=== PATIENT | male | born 1960 | race African-American/Black ===

== ENCOUNTER 2016-06-30 11:16 | Emergency (ER) | payer OTHER ==
[2016-06-30 11:32] VITALS: BP 162/106
--- NOTE | 2016-06-30 11:57 | ER Document Report ---
HPI - HPI Pain Level: 4 Context: 56 yo male c/o sore throat x several years. pt has been seen by his PCM and ENT for same. Most recently seen by ENT, pt reports negative scope. was scheduled for CT, but missed appointment. no new symptoms, just consistant left sided throat pain. no fever, no difficulty swallowing or talking. pt is a smoker Associated Symptoms: Allergy/hay fever. denies: Body/muscle aches, Chest pain, Chills, Nonproductive cough, Fever Exacerbated by: Food Relieved by: Denies Similar symptoms previously: Yes Recently seen / treated by doctor: Yes - PCM, ENT - ROS Systems Reviewed and Negative: Yes All other systems reviewed and negative - DERM Skin Color: Normal Past Medical History - General Information source: Patient - Social History Smoking Status: Current Every Day Smoker Frequency of alcohol use: Rare Drug Abuse: None Lives with: Alone Family History: Reviewed & Not Pertinent, CVA Patient has suicidal ideation: No Patient has homicidal ideation: No Pulmonary Medical History: Reports: Hx Bronchitis Denies: Hx Tuberculosis Renal/ Medical History: Denies: Hx Peritoneal Dialysis Psychiatric Medical History: Reports: Hx Depression Past Surgical History: Reports: Hx Inguinal Hernia, Hx Orthopedic Surgery - mass removed right hip - Immunizations Immunizations up to date: No Hx Diphtheria, Pertussis, Tetanus Vaccination: No Vertical Provider Document - CONSTITUTIONAL Agree With Documented VS: Yes Exam Limitations: No Limitations General Appearance: WD/WN, No Apparent Distress - INFECTION CONTROL TRAVEL OUTSIDE OF THE [place] IN LAST 30 DAYS: No - HEENT HEENT: Atraumatic, Normal ENT Exam, PERRLA - NECK Neck: Normal Inspection, Supple. negative: Lymphadenopathy-Left, Lymphadenopathy-Right - RESPIRATORY Respiratory: Breath Sounds Normal, No Respiratory Distress O2 Sat by Pulse Oximetry: 97 - CARDIOVASCULAR Cardiovascular: Regular Rate, Regular Rhythm - NEURO Level of Consciousness: Awake, Alert, Appropriate - DERM Integumentary: Warm, Dry Course - Re-evaluation Re-evalutation: 06/30/16 12:06 nonemergent, no CT indicated today but do recommend follow up with PCM for further evaluation. will prescribe antihistamine and intranasal steroid to help alleviate allergy symptoms. pt highly encouraged to quit smoking. BP noted to be elevated. pt denies hx/o HTN. pt admits to high sodium intake. recommend pt keep blood pressure diary, limit sodium to less than 1500mg/day. follow up with PCM for further management pt is asymptomatic for any hypertensive crisis. denies PACK, dizziness, neurologic deficits. pt is agreeable with plan and stable for discharge - Vital Signs Vital signs: Temp Pulse Resp BP Pulse Ox 97.7 F 73 16 162/106 H 97 06/30/16 11:30 06/30/16 11:30 06/30/16 11:30 06/30/16 11:30 06/30/16 11:30 Discharge - Discharge Clinical Impression: Throat pain, Elevated blood pressure reading Condition: Stable Disposition: HOME, SELF-CARE Instructions: Sore Throat ([facility]), High Blood Pressure ([facility]), Stop Smoking ([facility]) Additional Instructions: Your blood pressure was elevated today, reading 162/106 Please keep a blood pressure diary. If your readings are consistantly greater than 140/90, you will need treatment Limit your sodium intake to less than 1500mg/day Follow up with your primary care PALLAVI for further evaluation and treatment Your chronic sore throat needs further evaluation Please see your primary care PALLAVI I am starting you on intranasal steroid and antihistamine to help with allergy symptoms Prescriptions: Fexofenadine HCl [Cathy] 180 mg PO DAILY #10 tablet Fluticasone Propionate [Flonase Allergy Relief] 2 spray NS DAILY #1 bottle
== END 2016-06-30 12:41 | disposition home or self-care (01) ==
LOC: ER 11:16
DX: J02.9 Acute pharyngitis, unspecified (principal); J30.1 Allergic rhinitis due to pollen; F17.200 Nicotine dependence, unspecified, uncomplicated; R03.0 Elevated blood-pressure reading, without diagnosis of hypertension
CPT/HCPCS: 99282

== ENCOUNTER 2016-10-11 09:21 | Emergency (ER) | payer OTHER ==
[2016-10-11] MEDS ORDERED: ASPIRIN 81 MG TABLET, CHEWABLE PO ONE (09:46)
--- NOTE | 2016-10-11 09:50 | ER Document Report ---
ED Medical Screen (RME) - General TRAVEL OUTSIDE OF THE [place] IN LAST 30 DAYS: No <RORO JACKSON - Last Filed: 10/11/16 12:25> <GILBERT SIERRA - Last Filed: 10/11/16 21:12> - General Chief Complaint: Weakness Stated Complaint: WEAKNESS/DIZZINESS Time Seen by Provider: 10/11/16 09:40 Notes: Patient is a 56 year old male presenting to the ED for chest pain and faintness. Patient has a soreness/heaviness in his chest that was onset yesterday. Patient also feels faint, sick, woozy, and dizzy. Patient states he feels like he is going to fall over when he walks. Patient states his symptoms have progressed and has been feeling worse as the day when on. Patient took his blood pressure at home which was 138/87. Patient denies any shortness of breath. Patient was taken off opiates with chronic pain management over 1 year ago. Patient has been working outside in the heat over the past few weeks. Patient has been to this facility before for similar symptoms but stated that he monitored his blood pressure and then he was feeling better so he stopped. Patient is an everyday smoker. I have greeted and performed a rapid initial assessment of this patient. A comprehensive ED assessment and evaluation of the patient, analysis of test results and completion of the medical decision making process will be conducted by additional ED providers. (RORO JACKSON) - Related Data Allergies/Adverse Reactions: No Known Allergies Allergy (Verified 10/11/16 09:28) Past Medical History - Social History Cigarette use (# per day): Yes Chew tobacco use (# tins/day): No Frequency of alcohol use: None Drug Abuse: None Family history: None Pulmonary Medical History: Reports: Hx Bronchitis Denies: Hx Tuberculosis Renal/ Medical History: Denies: Hx Peritoneal Dialysis Psychiatric Medical History: Reports: Hx Depression Past Surgical History: Reports: Hx Inguinal Hernia, Hx Orthopedic Surgery - mass removed right hip - Immunizations Immunizations up to date: No Hx Diphtheria, Pertussis, Tetanus Vaccination: No <RORO JACKSON - Last Filed: 10/11/16 12:25> Physical Exam <RORO JACKSON - Last Filed: 10/11/16 12:25> <GILBERT SIERRA - Last Filed: 10/11/16 21:12> - Vital signs Vitals: Temp Pulse Resp BP Pulse Ox 97.9 F 69 16 150/92 H 100 10/11/16 09:29 10/11/16 09:29 10/11/16 09:29 10/11/16 09:29 10/11/16 09:29 - Notes Notes: GENERAL: Alert, interacts well. No acute distress. LUNGS: Clear to auscultation bilaterally, no wheezes, rales, or rhonchi. No respiratory distress. HEART: Regular rate and rhythm. No murmurs, gallops, or rubs. (RORO JACKSON) Course - Laboratory Result Diagrams: 10/11/16 10:10 10/11/16 10:10 <RORO JACKSON - Last Filed: 10/11/16 12:25> - Laboratory Result Diagrams: 10/11/16 10:10 10/11/16 10:10 <GILBERT SIERRA - Last Filed: 10/11/16 21:12> - Vital Signs Vital signs: Temp Pulse Resp BP Pulse Ox 98.2 F 55 L 19 167/99 H 100 10/11/16 14:39 10/11/16 11:10 10/11/16 14:25 10/11/16 14:25 10/11/16 14:25 - Laboratory Laboratory results interpreted by me: 10/11/16 10/11/16 10:10 10:10 RDW 15.1 H Monocytes % 16.0 H Creatine Kinase 208 H Doctor's Discharge <RORO JACKSON - Last Filed: 10/11/16 12:25> <GILBERT SIERRA - Last Filed: 10/11/16 21:12> - Discharge Clinical Impression: Body aches HTN (hypertension) Qualifiers: Hypertension type: essential hypertension Qualified Code(s): I10 - Essential ( primary) hypertension Condition: Stable Disposition: HOME, SELF-CARE Additional Instructions: Chest Pain of Unclear Cause The exact cause of your chest pain isn't clear. Fortunately, there is no evidence of a dangerous medical condition. Further testing may be required to find the source of the pain. Most often, we find that this pain is coming from the chest wall -- the muscles or rib joints in the chest. But chest pain can come from the lung and lung lining, the esophagus, the heart valves or heart lining, and even the stomach or gallbladder. Rest. Eat lightly until the pain is gone. We may prescribe medicine for pain and inflammation. You should call the physician immediately if the pain radiates to the shoulder, jaw or arms; if you start to run a fever or develop a cough; or if you develop shortness of breath, or other new or alarming symptoms. Follow up with your physician tomorrow for further care or return to the ED IMMEDIATELY if symptoms worsen or new concerns occur. If you cannot afford to follow up with your primary care physician a list of low cost clinics have been provided at the end of your discharge papers as well. Scribe Documentation - Scribe Written by Ariana:: Ariana Sosa, 10/11/16 9:50 acting as scribe for :: Tae <RORO JACKSON - Last Filed: 10/11/16 12:25>
[2016-10-11 10:23] LABS: ABSOLUTE BASOPHILS # (AUTO) 0.1 10^3/uL (0.0-0.2); ABSOLUTE EOSINOPHILS # (AUTO) 0.3 10^3/uL (0.0-0.6); ABSOLUTE LYMPHOCYTES (AUTO) 1.6 10^3/uL (0.5-4.7); ABSOLUTE MONOCYTES (AUTO) 0.9 10^3/uL (0.1-1.4); ABSOLUTE NEUT (AUTO) 2.6 10^3/uL (1.7-8.2); BASOPHILS % (AUTO) 1.3 % (0-2); EOSINOPHILS % (AUTO) 4.9 % (0-6); HEMATOCRIT 43.6 % (37.9-51.0); HEMOGLOBIN 14.6 g/dL (13.5-17.0); HGB HCT DIFFERENCE 0.2; LYMPHOCYTES % (AUTO) 29.1 % (13-45); MEAN CORPUSCULAR HEMOGLOBIN 28.8 pg (27.0-33.4); MEAN CORPUSCULAR HGB CONC 33.5 g/dL (32.0-36.0); MEAN CORPUSCULAR VOLUME 86 fl (80-97); RED BLOOD COUNT 5.06 10^6/uL (4.35-5.55); RED CELL DISTRIBUTION WIDTH 15.1 % (11.5-14.0); SEGMENTED NEUTROPHILS % (AUTO) 48.7 % (42-78); WHITE BLOOD COUNT 5.4 10^3/uL (4.0-10.5)
--- NOTE | 2016-10-11 10:29 | RADIOLOGY REPORT (SQ) ---
EXAM DESCRIPTION: CHEST SINGLE VIEW COMPLETED DATE/TIME: 10/11/2016 10:21 am REASON FOR STUDY: chest tightness COMPARISON: February 2013 EXAM PARAMETERS: NUMBER OF VIEWS: One view. TECHNIQUE: Single frontal radiographic view of the chest acquired. RADIATION DOSE: NA LIMITATIONS: None. FINDINGS: LUNGS AND PLEURA: No opacities, masses or pneumothorax. No pleural effusion. MEDIASTINUM AND HILAR STRUCTURES: No masses. Contour normal. HEART AND VASCULAR STRUCTURES: Heart normal in size. Normal vasculature. BONES: No acute findings. HARDWARE: None in the chest. OTHER: No other significant finding. IMPRESSION: NO ACUTE RADIOGRAPHIC FINDING IN THE CHEST. TECHNICAL DOCUMENTATION: JOB ID: [id number]
[2016-10-11 10:53] LABS: ALANINE AMINOTRANSFERASE 34 U/L (21-72); ALBUMIN 4.3 g/dL (3.5-5.0); ALKALINE PHOSPHATASE 54 U/L (38-126); ANION GAP 7 (5-19); ASPARTATE AMINO TRANSFERASE 36 U/L (17-59); BILIRUBIN,DIRECT 0.2 mg/dL (0.0-0.4); BLOOD UREA NITROGEN 11 mg/dL (7-20); CALCIUM 9.2 mg/dL (8.4-10.2); CARBON DIOXIDE 28 mmol/L (22-30); CHLORIDE 104 mmol/L (98-107); CREATINE KINASE 208 U/L (55-170); CREATININE RESULT 1.05 mg/dL (0.52-1.25); GLUCOSE 95 mg/dL (75-110); SODIUM 138.8 mmol/L (137-145); TOTAL PROTEIN 7.6 g/dL (6.3-8.2)
[2016-10-11 11:11] LABS: CREATINE KINASE MB 1.13 ng/mL (<4.55)
[2016-10-11] MEDS ORDERED: NORMAL SALINE 1000 ML 1,000 ML IV PRN (11:13)
[2016-10-11 11:19] LABS: TROPONIN I < 0.012 ng/mL
--- NOTE | 2016-10-11 11:48 | ER Document Report ---
ED General - General Chief Complaint: Weakness Stated Complaint: WEAKNESS/DIZZINESS Time Seen by Provider: 10/11/16 09:40 Mode of Arrival: Ambulatory Information source: Patient Notes: 56-year-old male presents with complaints of generalized weakness dizziness for approximately 1 week. 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 Patient notes his whole body aches, denies any specific chest pain . notes the achiness all throughout has been constant, that he has had cramps in his legs TRAVEL OUTSIDE OF THE [place] IN LAST 30 DAYS: No - HPI Onset: Last week Onset/Duration: Persistent Quality of pain: Achy, Cramping Severity: Mild Pain Level: 1 Associated symptoms: Body/muscle aches Exacerbated by: Denies Relieved by: Denies Similar symptoms previously: No Recently seen / treated by doctor: No - Related Data Allergies/Adverse Reactions: No Known Allergies Allergy (Verified 10/11/16 09:28) Past Medical History - Social History Smoking Status: Current Every Day Smoker Cigarette use (# per day): Yes Chew tobacco use (# tins/day): No Smoking Education Provided: No Frequency of alcohol use: None Drug Abuse: None Family History: Reviewed & Not Pertinent, CVA - Past Medical History Cardiac Medical History: Reports: Hx Hypertension - no medicatoins was told to monitor Pulmonary Medical History: Reports: Hx Bronchitis Denies: Hx Tuberculosis Renal/ Medical History: Denies: Hx Peritoneal Dialysis Psychiatric Medical History: Reports: Hx Depression Past Surgical History: Reports: Hx Inguinal Hernia, Hx Orthopedic Surgery - mass removed right hip - Immunizations Immunizations up to date: No Hx Diphtheria, Pertussis, Tetanus Vaccination: No Review of Systems - Review of Systems Notes: REVIEW OF SYSTEMS: CONSTITUTIONAL : Denies fever, chills, or sweats. Denies recent illness. EENT: Denies eye, ear, throat, or mouth pain or symptoms. Denies nasal or sinus congestion or discharge. Denies throat, tongue, or mouth swelling or difficulty swallowing. CARDIOVASCULAR: Denies chest pain. Denies palpitations or racing or irregular heart beat. Denies ankle edema. RESPIRATORY: Denies cough, cold, or chest congestion. Denies shortness of breath, difficulty breathing, or wheezing. GASTROINTESTINAL: Denies abdominal pain or distention. Denies nausea, vomiting , or diarrhea. Denies blood in vomitus, stools, or per rectum. Denies black, tarry stools. Denies constipation. GENITOURINARY: Denies difficulty urinating, painful urination, burning, frequency, blood in urine, or discharge. MUSCULOSKELETAL: Body aches SKIN: Denies rash, lesions or sores. HEMATOLOGIC : Denies easy bruising or bleeding. LYMPHATIC: Denies swollen, enlarged glands. NEUROLOGICAL: Denies confusion or altered mental status. Denies passing out or loss of consciousness. Denies dizziness or lightheadedness. Denies headache. Denies weakness or paralysis or loss of use of either side. Denies problems with gait or speech. Denies sensory loss, numbness, or tingling. Denies seizures. PSYCHIATRIC: Denies anxiety or stress. Denies depression, suicidal ideation, or homicidal ideation. ALL OTHER SYSTEMS REVIEWED AND NEGATIVE. Dictation was performed using [employer] voice recognition software PHYSICAL EXAMINATION: GENERAL: Well-appearing, well-nourished and in no acute distress. HEAD: Atraumatic, normocephalic. EYES: Pupils equal round and reactive to light, extraocular movements intact, sclera anicteric, conjunctiva are normal. ENT: Nares patent, oropharynx clear without exudates. Moist mucous membranes. NECK: Normal range of motion, supple without lymphadenopathy LUNGS: Breath sounds clear to auscultation bilaterally and equal. No wheezes rales or rhonchi. HEART: Regular rate and rhythm without murmurs ABDOMEN: Soft, nontender, nondistended abdomen. No guarding, no rebound. No masses appreciated. Musculoskeletal: Normal range of motion, no pitting or edema. No cyanosis. NEUROLOGICAL: Cranial nerves grossly intact. Normal speech, normal gait. Normal sensory, motor exams PSYCH: Normal mood, normal affect. SKIN: Warm, Dry, normal turgor, no rashes or lesions noted. Physical Exam - Vital signs Vitals: Temp Pulse Resp BP Pulse Ox 97.9 F 69 16 150/92 H 100 10/11/16 09:29 10/11/16 09:29 10/11/16 09:29 10/11/16 09:29 10/11/16 09:29 Course - Re-evaluation Re-evalutation: 10/11/16 11:47 Patient appears to be having muscle breakdown secondary to exertion and the heat , he will be given IV fluids, cardiac enzymes were negative CK is consistent with the breakdown the muscle. Otherwise he looks well is in no distress EKG noted no acute abnormality given the patient's symptoms have been ongoing for over 1 week I would expect lab value to note cardiac involvement which it does not at this time After performing a Medical Screening Examination, I estimate there is LOW risk for RUPTURED ESOPHAGUS, PNEUMOTHORAX, PULMONARY EMBOLISM, ACUTE CORONARY SYNDROME, OR THORACIC AORTIC DISSECTION, thus I consider the discharge disposition reasonable. I have reevaluated this patient multiple times and no significant life threatening changes are noted. The patient and I have discussed the diagnosis and risks, and we agree with discharging home with close follow-up. We also discussed returning to the Emergency Department immediately if new or worsening symptoms occur. We have discussed the symptoms which are most concerning (e.g., bloody sputum, worsening pain or shortness of breath) that necessitate immediate return. - Vital Signs Vital signs: Temp Pulse Resp BP Pulse Ox 97.9 F 69 16 150/92 H 100 10/11/16 09:29 10/11/16 09:29 10/11/16 09:29 10/11/16 09:29 10/11/16 09:29 - Laboratory Result Diagrams: 10/11/16 10:10 10/11/16 10:10 Laboratory results interpreted by me: 10/11/16 10/11/16 10:10 10:10 RDW 15.1 H Monocytes % 16.0 H Creatine Kinase 208 H - Diagnostic Test Radiology reviewed: Image reviewed, Reports reviewed - EKG Interpretation by Me EKG shows normal: Sinus rhythm, Dix, Intervals, QRS Complexes Discharge - Discharge Clinical Impression: Body aches HTN (hypertension) Qualifiers: Hypertension type: essential hypertension Qualified Code(s): I10 - Essential ( primary) hypertension Condition: Stable Disposition: HOME, SELF-CARE Additional Instructions: Chest Pain of Unclear Cause The exact cause of your chest pain isn't clear. Fortunately, there is no evidence of a dangerous medical condition. Further testing may be required to find the source of the pain. Most often, we find that this pain is coming from the chest wall -- the muscles or rib joints in the chest. But chest pain can come from the lung and lung lining, the esophagus, the heart valves or heart lining, and even the stomach or gallbladder. Rest. Eat lightly until the pain is gone. We may prescribe medicine for pain and inflammation. You should call the physician immediately if the pain radiates to the shoulder, jaw or arms; if you start to run a fever or develop a cough; or if you develop shortness of breath, or other new or alarming symptoms. Follow up with your physician tomorrow for further care or return to the ED IMMEDIATELY if symptoms worsen or new concerns occur. If you cannot afford to follow up with your primary care physician a list of low cost clinics have been provided at the end of your discharge papers as well.
[2016-10-11 14:31] VITALS: BP 167/99
--- NOTE | 2016-10-13 13:42 | EKG REPORT ---
SEVERITY:- BORDERLINE ECG - SINUS RHYTHM RIGHT AXIS DEVIATION LOW VOLTAGE IN FRONTAL LEADS BORDERLINE T WAVE ABNORMALITIES : Confirmed by: Keisha Syed MD 13-Oct-2016 13:41:52
== END 2016-10-11 14:40 | disposition home or self-care (01) ==
LOC: ER 09:21
DX: M79.1 Myalgia (principal); I10 Essential (primary) hypertension; R53.1 Weakness; R42 Dizziness and giddiness; F17.210 Nicotine dependence, cigarettes, uncomplicated
CPT/HCPCS: 93005; 99285; 96360; 96361; 36415; 82553; 82550; 85025; 80053; 84484; 71010; 93010; J7030

== ENCOUNTER 2017-05-17 15:38 | Emergency (ER) | payer OTHER ==
[2017-05-17] MEDS ORDERED: ACETAMINOPHEN 325 MG TABLET PO ONE (15:44)
[2017-05-17 15:47] VITALS: BP 148/96
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
--- NOTE | 2017-05-17 16:13 | RADIOLOGY REPORT (SQ) ---
EXAM DESCRIPTION: CT HEAD WITHOUT COMPLETED DATE/TIME: 05/17/2017 4:04 pm REASON FOR STUDY: head injury, +LOC COMPARISON: None. TECHNIQUE: Axial images acquired through the brain without intravenous contrast. Images reviewed wi th bone, brain and subdural windows. Images stored on PACS. All CT scanners at this facility use dose modulation, iterative reconstruction, and/or weight based d osing when appropriate to reduce radiation dose to as low as reasonably achievable (ALARA). [facility]: Dose Right [facility]: CareDose [facility]: Dose Right [facility]: Teradose 4D [facility]: Smart [employer] RADIATION DOSE: CT Rad equipment meets quality standard of care and radiation dose reduction techniq ues were employed. CTDIvol: 64.6 mGy. DLP: 1034 mGy-cm. mGy. LIMITATIONS: None. FINDINGS: VENTRICLES: Normal size and contour. CEREBRUM: No masses. No hemorrhage. No midline shift. No evidence for acute infarction. Normal gra y/white matter differentiation. No areas of low density in the white matter. CEREBELLUM: No masses. No hemorrhage. No alteration of density. No evidence for acute infarction. EXTRAAXIAL SPACES: No fluid collections. No masses. ORBITS AND GLOBE: No intra- or extraconal masses. Normal contour of globe without masses. CALVARIUM: No fracture. PARANASAL SINUSES: Mild diffuse mucous membrane thickening in the maxillary sinuses and ethmoid air c ell SOFT TISSUES: No mass or hematoma. OTHER: No other significant finding. IMPRESSION: NORMAL BRAIN CT WITHOUT CONTRAST. EVIDENCE OF ACUTE STROKE: NO. COMMENT: Quality ID # [id number]: Final reports with documentation of one or more dose reduction techniques (e.g., Automated exposure control, adjustment of the mA and/or kV according to patient size, use of iterative reconstruction technique) TECHNICAL DOCUMENTATION: JOB ID: [id number] [employer]- All Rights Reserved Reading location - IP/workstation name: [email or web address]
== END 2017-05-17 16:33 | disposition home or self-care (01) ==
LOC: ER 15:38
DX: S00.03XA Contusion of scalp, initial encounter (principal); Y04.2XXA Assault by strike against or bumped into by another person, initial encounter; Y93.01 Activity, walking, marching and hiking; R32 Unspecified urinary incontinence; F10.20 Alcohol dependence, uncomplicated; I10 Essential (primary) hypertension; F17.200 Nicotine dependence, unspecified, uncomplicated
CPT/HCPCS: 70450; 99284

== ENCOUNTER 2017-05-17 20:07 | Emergency (ER) | payer OTHER ==
[2017-05-17] MEDS ORDERED: DIPH/PERTUSS(ACELL)/TETANUS VAC/PF 0.5 ML SYR (>=10YO) IM ONE (20:54)
[2017-05-17] MEDS ORDERED: LIDOCAINE 1% INJ-PF (10 MG/ML) 30 ML SDV INJ ONE (20:54)
[2017-05-17] MEDS ORDERED: INFLUENZA ADLT QUAD (36MOS+) 2017-18 VAC 0.5 ML SYR IM ONE (20:56)
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
[2017-05-17] MEDS ORDERED: CEPHALEXIN 500 MG CAPSULE PO ONE (21:43)
[2017-05-17 22:12] VITALS: BP 125/109
== END 2017-05-17 22:40 | disposition home or self-care (01) ==
LOC: ER 20:07
DX: S01.511A Laceration without foreign body of lip, initial encounter (principal); Y09 Assault by unspecified means; I10 Essential (primary) hypertension; F17.200 Nicotine dependence, unspecified, uncomplicated; Z23 Encounter for immunization
CPT/HCPCS: 99282; 90471; 90715; 90686; 12011; G0008

== ENCOUNTER 2017-07-02 11:06 | Emergency (ER) | payer OTHER ==
--- NOTE | 2017-07-02 11:35 | ER Document Report ---
ED Medical Screen (RME) - General Chief Complaint: Chest Pain Stated Complaint: CHEST PAIN Time Seen by Provider: 07/02/17 11:34 Notes: cp since this am. no prev card eval except holter monitor. TRAVEL OUTSIDE OF THE [place] IN LAST 30 DAYS: No - Related Data Allergies/Adverse Reactions: No Known Allergies Allergy (Verified 07/02/17 11:07) Past Medical History - Social History Family history: None - Past Medical History Cardiac Medical History: Reports: Hx Hypertension - no medicatoins was told to monitor Pulmonary Medical History: Reports: Hx Bronchitis Denies: Hx Tuberculosis Renal/ Medical History: Denies: Hx Peritoneal Dialysis Psychiatric Medical History: Reports: Hx Depression Past Surgical History: Reports: Hx Inguinal Hernia, Hx Orthopedic Surgery - mass removed right hip - Immunizations Immunizations up to date: No Hx Diphtheria, Pertussis, Tetanus Vaccination: No Physical Exam - Vital signs Vitals: Temp Pulse Resp BP Pulse Ox 97.9 F 69 14 144/89 H 100 07/02/17 11:20 07/02/17 11:20 07/02/17 11:20 07/02/17 11:20 07/02/17 11:20 Course - Vital Signs Vital signs: Temp Pulse Resp BP Pulse Ox 97.9 F 69 14 144/89 H 100 07/02/17 11:20 07/02/17 11:20 07/02/17 11:20 07/02/17 11:20 07/02/17 11:20
[2017-07-02 12:11] LABS: ABSOLUTE EOSINOPHILS # (AUTO) 0.2 10^3/uL (0.0-0.6); ABSOLUTE LYMPHOCYTES (AUTO) 1.3 10^3/uL (0.5-4.7); ABSOLUTE MONOCYTES (AUTO) 0.8 10^3/uL (0.1-1.4); ABSOLUTE NEUT (AUTO) 2.6 10^3/uL (1.7-8.2); BASOPHILS % (AUTO) 0.9 % (0-2); EOSINOPHILS % (AUTO) 3.8 % (0-6); HEMATOCRIT 42.2 % (37.9-51.0); HEMOGLOBIN 14.3 g/dL (13.5-17.0); LYMPHOCYTES % (AUTO) 26.8 % (13-45); MEAN CORPUSCULAR HEMOGLOBIN 28.6 pg (27.0-33.4); MEAN CORPUSCULAR VOLUME 84 fl (80-97); MONOCYTES % (AUTO) 15.4 % (3-13); PLATELET COUNT 209 10^3/uL (150-450); RED BLOOD COUNT 5.01 10^6/uL (4.35-5.55); RED CELL DISTRIBUTION WIDTH 16.2 % (11.5-14.0); SEGMENTED NEUTROPHILS % (AUTO) 53.1 % (42-78); TOTAL CELLS COUNTED % (AUTO) 100 %; WHITE BLOOD COUNT 4.9 10^3/uL (4.0-10.5)
[2017-07-02 12:34] LABS: ALANINE AMINOTRANSFERASE 28 U/L (21-72); ALBUMIN 4.5 g/dL (3.5-5.0); ALKALINE PHOSPHATASE 50 U/L (38-126); ANION GAP 8 (5-19); ASPARTATE AMINO TRANSFERASE 30 U/L (17-59); BILIRUBIN,DIRECT 0.4 mg/dL (0.0-0.4); BILIRUBIN,TOTAL 0.9 mg/dL (0.2-1.3); BLOOD UREA NITROGEN 18 mg/dL (7-20); CALCIUM 9.9 mg/dL (8.4-10.2); CARBON DIOXIDE 27 mmol/L (22-30); CHLORIDE 103 mmol/L (98-107); GLUCOSE 123 mg/dL (75-110); POTASSIUM 4.6 mmol/L (3.6-5.0); SODIUM 137.9 mmol/L (137-145); TOTAL PROTEIN 7.4 g/dL (6.3-8.2)
[2017-07-02 13:18] LABS: APPEARANCE,URINE CLEAR; BILIRUBIN,URINE NEGATIVE (NEGATIVE); COLOR,URINE STRAW; GLUCOSE, URINE NEGATIVE (NEGATIVE); KETONES,URINE NEGATIVE (NEGATIVE); LEUKOCYTE ESTERASE,URINE NEGATIVE (NEGATIVE); NITRITE,URINE NEGATIVE (NEGATIVE); PROTEIN,URINE NEGATIVE (NEGATIVE); URINE SPECIFIC GRAVITY 1.004; UROBILINOGEN,URINE NEGATIVE mg/dL (<2.0)
[2017-07-02] MEDS ORDERED: LIDOCAINE 2% VISCOUS SOLN 20 ML UDCUP PO ONE (13:32)
[2017-07-02] MEDS ORDERED: MAG HYDROX/AL HYDROX/SIMETH SUSP 30 ML UDCUP PO ONE (13:32)
[2017-07-02] MEDS ORDERED: METOCLOPRAMIDE HCL ORAL SOLN 10 MG/10 ML UDCUP PO ONE (13:32)
--- NOTE | 2017-07-02 13:59 | EKG REPORT ---
SEVERITY:- ABNORMAL ECG - SINUS RHYTHM PROBABLE LEFT ATRIAL ABNORMALITY RIGHT AXIS DEVIATION BORDERLINE T WAVE ABNORMALITIES MINIMAL ST ELEVATION, ANTERIOR LEADS : Confirmed by: Arslan Godfrey MD 02-Jul-2017 13:59:12
--- NOTE | 2017-07-02 14:04 | RADIOLOGY REPORT (SQ) ---
EXAM DESCRIPTION: FACIAL BONES COMPLETED DATE/TIME: 07/02/2017 1:46 pm REASON FOR STUDY: tooth in left upper COMPARISON: CT brain 05/17/2017 NUMBER OF VIEWS: Three view. TECHNIQUE: Images of the facial bones acquired. LIMITATIONS: None. FINDINGS: ORBITS: No fracture. No foreign body. SINUSES: No mucosal thickening. No air fluid levels. FACIAL BONES: No fracture. OTHER: No other significant finding. IMPRESSION: NO FOREIGN BODY OR FRACTURE OF THE FACIAL BONES. TECHNICAL DOCUMENTATION: JOB ID: [id number] [employer]- All Rights Reserved Reading location - IP/workstation name: [email or web address]
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
[2017-07-02 15:20] VITALS: BP 138/83
== END 2017-07-02 15:41 | disposition left against medical advice (07) ==
LOC: ER 11:06
DX: R07.9 Chest pain, unspecified (principal); S01.511D Laceration without foreign body of lip, subsequent encounter; Y04.8XXD Assault by other bodily force, subsequent encounter; F17.210 Nicotine dependence, cigarettes, uncomplicated; I10 Essential (primary) hypertension
CPT/HCPCS: 93005; 99285; 36415; 85025; 80053; 81001; 84484; 70150; 93010; J3490

== ENCOUNTER 2017-12-04 02:44 | Emergency (ER) | payer OTHER ==
[2017-12-04 03:10] VITALS: BP 145/93
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
[2017-12-04] MEDS ORDERED: ACETAMINOPHEN 325 MG TABLET PO ONE (03:56)
--- NOTE | 2017-12-04 09:26 | EKG REPORT ---
SEVERITY:- BORDERLINE ECG - SINUS RHYTHM PROBABLE LEFT ATRIAL ABNORMALITY RIGHT AXIS DEVIATION : Confirmed by: Anthony Millard 04-Dec-2017 09:25:53
== END 2017-12-04 04:14 | disposition home or self-care (01) ==
LOC: ER 02:44
DX: S20.212A Contusion of left front wall of thorax, initial encounter (principal); R07.9 Chest pain, unspecified; R06.02 Shortness of breath; W19.XXXA Unspecified fall, initial encounter; Y92.009 Unspecified place in unspecified non-institutional (private) residence as the place of occurrence of the external cause; F17.200 Nicotine dependence, unspecified, uncomplicated
CPT/HCPCS: 71046; 93005; 93010; 99283

== ENCOUNTER 2019-01-23 17:59 | Emergency (ER) | payer OTHER ==
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
--- NOTE | 2019-01-23 20:23 | ER Document Report ---
HPI - HPI Time Seen by Provider: 01/23/19 18:20 Pain Level: 4 Context: Patient is a 58-year-old male who presents to the emergency department with a chief complaint of sore throat. Patient reports this is a chronic sore throat that he has had a for over 5 years. Patient reports at times his throat appears more irritated. Patient reports he has had more irritation over the past 2 weeks. Patient denies any other symptoms to include fever, dental pain, facial swelling, difficulty breathing or swallowing, neck pain, nausea, vomiting or diarrhea. Patient reports he has been seen by the ENT for similar symptoms and had a scope done. Patient reports this was negative. Patient states he has been given medications here in the past in our emergency department that have help with his pain. Patient reports he believes it was a pain medication and an antibiotic. Past Medical History - General Information source: Patient - Social History Smoking Status: Current Every Day Smoker Frequency of alcohol use: Social Drug Abuse: None Lives with: Family Family History: Reviewed & Not Pertinent, CVA Patient has suicidal ideation: No Patient has homicidal ideation: No - Past Medical History Cardiac Medical History: Reports: Hx Hypertension - no medicatoins was told to monitor Pulmonary Medical History: Reports: Hx Bronchitis Denies: Hx Tuberculosis EENT Medical History: Reports: None Neurological Medical History: Reports: None Endocrine Medical History: Reports: None Renal/ Medical History: Reports: None. Denies: Hx Peritoneal Dialysis Malignancy Medical History: Reports None GI Medical History: Reports: Hx Hiatal Hernia Musculoskeletal Medical History: Reports None Skin Medical History: Reports None Psychiatric Medical History: Reports: Hx Depression Traumatic Medical History: Reports: None Infectious Medical History: Reports: None Past Surgical History: Reports: Hx Inguinal Hernia, Hx Orthopedic Surgery - mass removed right hip - Immunizations Immunizations up to date: No Hx Diphtheria, Pertussis, Tetanus Vaccination: No Vertical Provider Document - CONSTITUTIONAL Agree With Documented VS: Yes Exam Limitations: No Limitations General Appearance: No Apparent Distress - INFECTION CONTROL TRAVEL OUTSIDE OF THE [place] IN LAST 30 DAYS: No - HEENT HEENT: Atraumatic, Normal ENT Exam, Normocephalic, PERRLA Notes: TMs were unremarkable bilaterally. There was no external pinna tenderness, ear drainage, tragus tenderness, mastoid tenderness, or erythema noted. Patient does not have any cervical lymphadenopathy. Patient's airway is patent. There is no oropharynx erythema. No tonsillar hypertrophy. Uvula is midline. Patient does have poor dentition with multiple broken teeth. There is no obvious signs of infection and no tenderness to the gums. There is no palpable mass or abscess within the mouth. - NECK Neck: Normal Inspection, Supple - RESPIRATORY Respiratory: Breath Sounds Normal, No Respiratory Distress - CARDIOVASCULAR Cardiovascular: Regular Rate, Regular Rhythm - GI/ABDOMEN Gastrointestinal: Abdomen Soft, Abdomen Non-Tender, Normal Bowel Sounds - MUSCULOSKELETAL/EXTREMETIES Musculoskeletal/Extremeties: FROM - NEURO Level of Consciousness: Awake, Alert, Appropriate - DERM Integumentary: Warm, Dry, No Rash Course - Re-evaluation Re-evalutation: 01/23/19 20:32 During the patient evaluation he is asking for pain medication. Patient reports he has been giving this before in the past which did seem to help with his symptoms. Patient reports his chronic sore throat on the left side has been present since 2013. Patient states he did have a CAT scan ordered years ago by the [facility] but he missed this appointment and did not reschedule this. Patient reports at times his sore throat is intermittent. Patient denies any other associated symptoms. Patient reports he was taking 800 mg ibuprofen with some relief earlier this week. Patient is asymptomatic and nontoxic. Patient sore throat appears to be chronic. At this time I do not believe further imaging is necessary. Patient does not require an oral antibiotic at this time. I did look through the previous charts which did show at one point he received a prescription for Flonase and Cathy. Patient states he believes this did help with his symptoms. I will prescribe these 2 medications as well as the 800 mg ibuprofen. Patient to follow-up with the [facility]. I did give the patient strict return precautions. - Vital Signs Vital signs: Temp Pulse Resp BP Pulse Ox 97.9 F 80 18 140/90 H 98 01/23/19 18:05 01/23/19 18:05 01/23/19 18:05 01/23/19 18:05 01/23/19 18:05 - Laboratory Laboratory results interpreted by me: 01/23/19 20:33 Laboratory 01/23/19 18:32 Group A Strep Rapid NEGATIVE Discharge - Discharge Clinical Impression: Chronic sore throat Condition: Stable Disposition: HOME, SELF-CARE Additional Instructions: Today you are seen in the emergency department for left throat pain that appears to be chronic. You have stated medications given to you in the past by our emergency department have seem to help. I have discussed with you prescribing Flonase and Cathy which is for allergies. At this time I do not believe you require a antibiotic. Your examination was reassuring, you have not had a fever and he reports that the left side of your throat feels raw. You have stated that you have felt like this before. I would follow-up with the [facility] to have the CAT scan that you have missed. We are not doing a CAT scan here in the emergency department as this is not urgent. If your symptoms changes like difficulty breathing, difficulty swallowing, fever, difficulty moving your neck or any new or worsening symptoms please return to the emergency department. Prescriptions: Fexofenadine/Pseudoephedrine [Cathy-D 24 Hour Tablet] 1 each PO DAILY #30 Fluticasone Propionate [Flonase Allergy Relief] 2 puff NS BID #1 bottle Ibuprofen [Motrin 800 mg Tablet] 800 mg PO Q8H PRN #30 tab PRN Reason:
[2019-01-23 20:52] VITALS: BP 146/91
== END 2019-01-23 20:50 | disposition home or self-care (01) ==
LOC: ER 17:59
DX: J02.9 Acute pharyngitis, unspecified (principal); F17.200 Nicotine dependence, unspecified, uncomplicated; I10 Essential (primary) hypertension
CPT/HCPCS: 87070; 87880